=== PATIENT | male | born 1995 | race African-American/Black ===

== ENCOUNTER 2017-04-02 12:45 | Emergency (ER) | payer OTHER ==
[~2017-04-02] VITALS: Ht 175.3 cm; Wt 79.6 kg
[2017-04-02] MEDS ORDERED: KETOROLAC 60 MG/2 ML VIAL (J1885) IM ONE (14:00)
--- NOTE | 2017-04-02 14:25 | REP ---
Clinical: Recurrent headaches . Comparison: None . Findings: The ventricles, sulci, and cisterns are normal in position and appearance. Floyd-white differentiation is maintained. No acute intracranial hemorrhage, mass/mass effect, pathology or trauma/injury. No evidence for acute infarction. No extra-axial fluid collection. Calvarium is intact. Paranasal sinuses and mastoid air cells are clear. Impression: Normal noncontrast head CT. No evidence for acute intracranial pathology or trauma/injury. Signed by Luis Enrique Doan MD 04/02/2017 02:16 P
[2017-04-02] MEDS ORDERED: AMOX875T PO (15:07)
[2017-04-02] MEDS ORDERED: FLON1SPR (15:07)
[2017-04-02 15:13] VITALS: BP 137/71
== END 2017-04-02 15:25 | disposition home or self-care (01) ==
LOC: M ED 12:45
DX: J01.90 Acute sinusitis, unspecified (principal); R51 Headache
CPT/HCPCS: 70450; 96372; 99282; J1885

== ENCOUNTER 2017-04-09 03:19 | Inpatient (IN) | payer OTHER ==
[~2017-04-09] VITALS: Ht 175.3 cm; Wt 73.1 kg
[~2017-04-09 03:19] MED LIST: AMOX875T PO; FLON1SPR
[2017-04-09 05:26] LABS: MEAN CORPUSCULAR HEMOGLOBIN 31.8 pg (27.0-33.0); MEAN CORPUSCULAR HGB CONC 34.2 g/dl (32.0-36.5); MEAN CORPUSCULAR VOLUME 92.9 fl (80.0-96.0); RED CELL DISTRIBUTION WIDTH 13.4 % (11.5-14.5); WHITE BLOOD COUNT 4.5 K/mm3 (4.0-10.0)
[2017-04-09 05:42] LABS: METHADONE URINE NEGATIVE (NEGATIVE)
[2017-04-09 05:54] LABS: ALBUMIN 3.7 GM/DL (3.2-5.2); ALBUMIN/GLOBULIN RATIO 1.23 (1.00-1.93); ALKALINE PHOSPHATASE 75 U/L (45-117); ALT/SGPT 26 U/L (12-78); ANION GAP 5 MEQ/L (8-16); AST/SGOT 30 U/L (15-37); BILIRUBIN,DIRECT 0.2 MG/DL (0.0-0.2); BILIRUBIN,TOTAL 0.7 MG/DL (0.2-1.0); BLOOD UREA NITROGEN 13 MG/DL (7-18); CARBON DIOXIDE LEVEL 29 MEQ/L (21-32); CHLORIDE LEVEL 106 MEQ/L (98-107); CREATININE FOR GFR 1.01 MG/DL (0.70-1.30); GLOMERULAR FILTRATION RATE > 60.0 (>60); GLUCOSE, FASTING 85 MG/DL (70-105); POTASSIUM SERUM 3.7 MEQ/L (3.5-5.1); SODIUM LEVEL 140 MEQ/L (136-145); TOTAL PROTEIN 6.7 GM/DL (6.4-8.2)
[2017-04-09] MEDS ORDERED: FLON1SPR (05:58)
[2017-04-09] MEDS ORDERED: NEOSPORIN OINT 0.9 GM PKT (FLOOR STOCK) As Ordered ONE (06:52)
[2017-04-09] MEDS ORDERED: traZODone 50 MG TAB PO PRN (07:00)
[2017-04-09] MEDS ORDERED: HALOPERIDOL 5 MG TAB PO PRN (07:00)
[2017-04-09] MEDS ORDERED: MAALOX 30 ML SUSP *UDC PO PRN (07:00)
[2017-04-09] MEDS ORDERED: ACETAMINOPHEN TAB 650MG DOSE (2X325MG) PO PRN (07:00)
[2017-04-09] MEDS ORDERED: LORazepam 1 MG TAB PO PRN (07:00)
[2017-04-09] MEDS ORDERED: MOM 30ML SUSPENSION UDC PO PRN (07:00)
[2017-04-09 11:50] VITALS: BP 128/81
[2017-04-09 18:00] VITALS: BP 116/61
--- NOTE | 2017-04-10 01:43 | HPE ---
DATE OF ADMISSION: 04/09/2017 HISTORY OF PRESENT ILLNESS: Please refer to psychiatric history and evaluation for further details on this admission. This examination and history is intended for medical issues, which may need treatment, followup or consult on this 21-year-old male. ALLERGIES: No known allergies. PRIMARY CARE PROVIDER: Amor. SOCIAL HISTORY: He is a soldier currently stationed at [employer]. Smokes none. Recreational drug use none. Ethyl alcohol (EtOH) none. PAST MEDICAL HISTORY: Negative. PAST SURGICAL HISTORY: Negative. FAMILY HISTORY: Noncontributory. LABORATORY STUDIES: WBC 4.5, hemoglobin 14.1, hematocrit 41.2, platelets 280. Electrolytes normal. BUN and creatinine are 13 and 1.01. Toxicology screen was negative. REVIEW OF SYSTEMS: 10-system review was done, was unremarkable. OBJECTIVE: Vital signs stable. Patient is alert and oriented times three. Pupils equal and react to light. Extraocular muscles intact. Cornea and sclerae clear. Conjunctivae were normal. No facial asymmetry. Pharynx, tongue and gums pink and moist. Tongue is midline. Neck is supple without lymphadenopathy. No thyromegaly, no goiter. Chest clear to auscultation without wheeze or retraction. Heart is regular. Abdomen is benign. Bowel sounds positive. Genitourinary/rectal: Not done. Extremities show equal strength, full range of motion. No cyanosis, clubbing or edema. Peripheral pulses equal and palpable bilaterally. Skin is warm and dry. IMPRESSION/PLAN: Psychiatric plan per psychiatry. No acute medical issues.
[2017-04-10 06:21] VITALS: BP 139/69
[2017-04-10] MEDS: CitaloPRAM (CeleXA) 10 MG TABLET PO SCH (09:33)
[2017-04-10 18:00] VITALS: BP 110/56
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
[2017-04-11 06:54] VITALS: BP 119/56
[2017-04-11] MEDS: CitaloPRAM (CeleXA) 10 MG TABLET PO SCH (08:52)
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
[2017-04-11 18:00] VITALS: BP 112/55
[2017-04-12 06:30] VITALS: BP 120/68
[2017-04-12] MEDS: CitaloPRAM (CeleXA) 20 MG TAB PO SCH (08:51)
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
[2017-04-12 18:00] VITALS: BP 129/79
[2017-04-13 06:31] VITALS: BP 116/56
[2017-04-13] MEDS: CitaloPRAM (CeleXA) 20 MG TAB PO SCH (08:31)
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
[2017-04-13 18:10] VITALS: BP 118/70
[2017-04-14 06:30] VITALS: BP 135/72
[2017-04-14] MEDS ORDERED: CELE20TA PO (09:36)
[2017-04-14] MEDS: CitaloPRAM (CeleXA) 20 MG TAB PO SCH (09:38)
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
== END 2017-04-14 14:00 | disposition home or self-care (01) | DRG 885 ==
LOC: EDBD 03:19 → M ED 03:19 → M ED INP 06:54 → M PSY 11:03
PROVIDERS: ADMIT Psychiatry & Neurology Psychiatry; ATTEND Psychiatry & Neurology Psychiatry
DX: F33.2 Major depressive disorder, recurrent severe without psychotic features (principal)

== ENCOUNTER 2018-08-24 11:19 | Emergency (ER) | payer OTHER ==
[2018-08-24] MEDS: KETOROLAC 30 MG/ML VIAL (J1885) IV (12:30)
[2018-08-24 12:56] LABS: BASO # 0.1 10^3/uL (0.0-0.2); BASO % 1.3 % (0.0-1.0); EOS # 0.3 10^3/uL (0.0-0.50); EOS % 5.5 % (0.0-3.0); HEMATOCRIT 43.2 % (42.0-52.0); HEMOGLOBIN 14.7 g/dl (13.5-17.5); LYMPH # 2.3 10^3/uL (1.5-6.5); LYMPH % 47.5 % (24.0-44.0); MEAN CORPUSCULAR HEMOGLOBIN 30.5 pg (27.0-33.0); MEAN CORPUSCULAR VOLUME 89.6 fl (80.0-96.0); MONO # 0.5 10^3/uL (0.0-0.8); MONO % 9.5 % (0.0-5.0); NEUTROPHILS # 1.7 10^3/uL (1.8-7.7); NEUTROPHILS % 36.2 % (36.0-66.0); PLATELET COUNT, AUTOMATED 368 10^3/uL (150-450); RED BLOOD COUNT 4.82 10^6/uL (4.30-6.10); RED CELL DISTRIBUTION WIDTH 12.7 % (11.5-14.5); WHITE BLOOD COUNT 4.7 10^3/uL (4.0-10.0)
[2018-08-24 13:29] LABS: ALBUMIN 3.8 GM/DL (3.2-5.2); ALBUMIN/GLOBULIN RATIO 1.03 (1.00-1.93); ALKALINE PHOSPHATASE 76 U/L (45-117); ALT/SGPT 30 U/L (12-78); ANION GAP 6 MEQ/L (8-16); AST/SGOT 24 U/L (7-37); BILIRUBIN,TOTAL 0.3 MG/DL (0.2-1.0); BLOOD UREA NITROGEN 18 MG/DL (7-18); CARBON DIOXIDE LEVEL 31 MEQ/L (21-32); CHLORIDE LEVEL 104 MEQ/L (98-107); CREATININE FOR GFR 0.92 MG/DL (0.70-1.30); GLOMERULAR FILTRATION RATE > 60.0 (>60); GLUCOSE, FASTING 80 MG/DL (70-100); POTASSIUM SERUM 4.8 MEQ/L (3.5-5.1); SODIUM LEVEL 141 MEQ/L (136-145); TOTAL PROTEIN 7.5 GM/DL (6.4-8.2)
[2018-08-24] MEDS: CEPHALEXIN 500 MG CAP PO (14:41)
== END 2018-08-24 14:44 | disposition home or self-care (01) ==
LOC: M ED 11:19
DX: L08.9 Local infection of the skin and subcutaneous tissue, unspecified (principal)
CPT/HCPCS: J1885